=== PATIENT | female | born 2000 | race African-American/Black ===

== ENCOUNTER 2022-12-02 12:00 | Inpatient (IN) | payer OTHER ==
[~2022-12-02] VITALS: Ht 167.6 cm; Wt 3.6 kg
[~2022-12-02 12:00] MED LIST: OSEL75CA PO; PRENATAL CAPLE1 EACH PO
[2022-12-02] MEDS ORDERED: IRON PO (14:10)
[2022-12-02] MEDS ORDERED: PRENAT PO (14:10)
[2022-12-10] MEDS ORDERED: IRON236 MG (11:08)
[2022-12-10] MEDS ORDERED: PRENATAL + DHA1 EAC1 (11:08)
== END 2022-12-10 12:31 | disposition home or self-care (01) | DRG 785 ==
LOC: OB/GYN 12-07 06:00 → O/R 12-07 06:00 → LDR 12-07 12:00 → OB/GYN 12-07 17:13
PROVIDERS: ADMIT Specialist; ATTEND Specialist
PROC: 0UB70ZZ Excision of Bilateral Fallopian Tubes, Open Approach (ICD-10-PCS; 2022-12-07)
PROC: 4A1HXCZ Monitoring of Products of Conception, Cardiac Rate, External Approach (ICD-10-PCS; 2022-12-07)
PROC: 10D00Z1 Extraction of Products of Conception, Low, Open Approach (ICD-10-PCS; principal; 2022-12-07 11:00)
DX: O34.211 Maternal care for low transverse scar from previous cesarean delivery (principal); Z3A.39 39 weeks gestation of pregnancy; Z37.0 Single live birth; Z30.2 Encounter for sterilization; Z20.822 Contact with and (suspected) exposure to COVID-19

== ENCOUNTER 2023-05-28 09:01 | Emergency (ER) | payer OTHER ==
[~2023-05-28] VITALS: Ht 167.6 cm; Wt 78.0 kg
[~2023-05-28 09:01] MED LIST changes: +IRON PO; +IRON236 MG; +PRENAT PO; +PRENATAL + DHA1 EAC1
== END 2023-05-28 13:02 | disposition home or self-care (01) ==
LOC: ER 09:01
PROVIDERS: General Practice
DX: N39.0 Urinary tract infection, site not specified (principal)

== ENCOUNTER 2023-06-29 13:42 | Emergency (ER) | payer OTHER ==
[~2023-06-29] VITALS: Ht 167.6 cm; Wt 72.6 kg
[2023-06-29] MEDS ORDERED: NORFLEX100MG PO (17:32)
[2023-06-29] MEDS ORDERED: DICLOFENAC SODI75 MG PO (17:32)
== END 2023-06-29 18:01 | disposition home or self-care (01) ==
LOC: ER 13:42
DX: M94.0 Chondrocostal junction syndrome [Tietze] (principal); Z20.822 Contact with and (suspected) exposure to COVID-19; R07.89 Other chest pain

== ENCOUNTER 2024-05-15 17:27 | Emergency (ER) | payer OTHER ==
[~2024-05-15] VITALS: Ht 167.6 cm; Wt 73.5 kg
[~2024-05-15 17:27] MED LIST changes: +DICLOFENAC SODI75 MG PO; +NORFLEX100MG PO
[2024-05-15] MEDS ORDERED: BACLOFEN5 MG PO (19:22)
[2024-05-15] MEDS ORDERED: KETO10TA2 PO (19:22)
== END 2024-05-15 20:02 | disposition home or self-care (01) ==
LOC: ER 17:28
DX: M62.838 Other muscle spasm (principal); M54.2 Cervicalgia; R07.89 Other chest pain; Z88.8 Allergy status to other drugs, medicaments and biological substances